=== PATIENT | male | born 1990 | race Caucasian/White ===

== ENCOUNTER 2016-07-22 19:32 | Emergency (ER) | payer OTHER ==
[~2016-07-22] VITALS: Ht 167.6 cm; Wt 65.8 kg
[2016-07-22] MEDS ORDERED: LIDOCAINE 2% 20 ML VIAL. ONE (20:48)
[2016-07-22] MEDS ORDERED: EPINEPHrine VIAL 30 MG/30 ML VIAL ONE (20:48)
[2016-07-22] MEDS ORDERED: LIDOCAINE 1%/EPI 1:100,000 20 ML VIAL. INJ ONE (21:00)
[2016-07-22 21:15] VITALS: BP 138/86
[2016-07-22] MEDS ORDERED: LIDOCAINE 2% 20 ML VIAL. IJ ONE ×2 (21:30)
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
== END 2016-07-22 21:15 | disposition home or self-care (01) ==
LOC: EEVIPCON 19:32 → ER 19:32
DX: S01.511A Laceration without foreign body of lip, initial encounter (principal); W21.07XA Struck by softball, initial encounter; Y93.89 Activity, other specified; Y92.89 Other specified places as the place of occurrence of the external cause; Y99.8 Other external cause status
CPT/HCPCS: 12011; 99283-25